=== PATIENT | female | born 1990 | race African-American/Black ===

== ENCOUNTER 2018-10-12 11:42 | Emergency (ER) | payer MEDICAID, OTHER ==
[~2018-10-12] VITALS: Ht 165.1 cm; Wt 70.0 kg
[2018-10-12] MEDS ORDERED: BACITRACIN ZINC OINT UDPKT TOP ONE (12:45)
[2018-10-12] MEDS ORDERED: ONDANSETRON 4MG ODT PO ONE (12:45)
[2018-10-12] MEDS ORDERED: HYDROCODONE/ACETAMINOPHEN 5/325MG TABLET PO ONE (12:45)
[2018-10-12] MEDS ORDERED: TETANUS, DIPHTHERIA, PERTUSSIS VAC/PF 0.5ML (>7YR OLD) IM ONE (12:45)
[2018-10-12 13:16] VITALS: BP 116/67
== END 2018-10-12 14:37 | disposition home or self-care (01) ==
LOC: ER 11:42
DX: S50.812A Abrasion of left forearm, initial encounter (principal); S50.811A Abrasion of right forearm, initial encounter; I10 Essential (primary) hypertension; F12.10 Cannabis abuse, uncomplicated; F17.210 Nicotine dependence, cigarettes, uncomplicated; W25.XXXA Contact with sharp glass, initial encounter; Y93.89 Activity, other specified; Y92.018 Other place in single-family (private) house as the place of occurrence of the external cause
CPT/HCPCS: 73090; 90471; 90715; 99284; Q0162

== ENCOUNTER 2019-09-05 21:41 | Emergency (ER) | payer MEDICAID ==
[~2019-09-05] VITALS: Ht 167.6 cm; Wt 73.0 kg
[2019-09-05] MEDS ORDERED: AMOXICILLIN/POTASSIUM CLAVULANATE 875/125MG TAB PO ONE (22:15)
[2019-09-05] MEDS ORDERED: HYDROCODONE/ACETAMINOPHEN 5/325MG TABLET PO ONE (22:15)
[2019-09-05 23:02] VITALS: BP 122/89
== END 2019-09-05 23:03 | disposition home or self-care (01) ==
LOC: ER 22:23
DX: K02.9 Dental caries, unspecified (principal); K00.7 Teething syndrome; F12.10 Cannabis abuse, uncomplicated
CPT/HCPCS: 99283

== ENCOUNTER 2019-09-21 12:19 | Emergency (ER) | payer MEDICAID ==
[~2019-09-21] VITALS: Ht 165.1 cm; Wt 72.0 kg
[2019-09-21 12:53] VITALS: BP 138/67
[2019-09-21] MEDS ORDERED: IBUPROFEN 600MG TABLET PO ONE (13:15)
== END 2019-09-21 13:41 | disposition home or self-care (01) ==
LOC: ER 12:19
DX: K02.9 Dental caries, unspecified (principal); F12.10 Cannabis abuse, uncomplicated
CPT/HCPCS: 99283